=== PATIENT | female | born 1985 | race American Indian/Alaskan Native ===

== ENCOUNTER 2017-07-13 14:11 | Emergency (ER) | payer SELFPAY ==
[2017-07-13 14:19] VITALS: BP 114/66
--- NOTE | 2017-07-13 15:11 | Emergency Department Report ---
ED Upper Extremity Inj HPI - General Chief Complaint: Shoulder Injury Stated Complaint: RIGHT SHOULDER/BACK PAIN Time Seen by Provider: 07/13/17 15:11 Source: patient Mode of arrival: Ambulatory Limitations: No Limitations - History of Present Illness Complaint: Injury to:: right -: Gradual Other Extremity Injury: Shoulder: Right Handedness: right Place: work Improves With: none Worsens With: none Associated Symptoms: denies other symptoms - Related Data Previous Rx's Medication Instructions Recorded Last Taken Type Ibuprofen [Motrin] 800 mg PO Q8HR PRN #20 tablet 07/13/17 Unknown Rx Allergies Allergy/AdvReac Type Severity Reaction Status Date / Time No Known Allergies Allergy Verified 07/13/17 14:17 ED Review of Systems ROS: Stated complaint: RIGHT SHOULDER/BACK PAIN Other details as noted in HPI Comment: Unobtainable due to pts medical conditions Constitutional: no symptoms reported, see HPI Eyes: as per HPI ENT: as per HPI Respiratory: no symptoms reported, see HPI Cardiovascular: as per HPI Endocrine: no symptoms reported, see HPI Gastrointestinal: as per HPI. denies: abdominal pain, nausea, vomiting Genitourinary: as per HPI. denies: urgency, dysuria Musculoskeletal: as per HPI, other (r shoulder pain). denies: back pain Skin: as per HPI Neurological: as per HPI Psychiatric: as per HPI Hematological/Lymphatic: as per HPI ED Past Medical Hx - Past Medical History Hx Hypertension: No Hx Congestive Heart Failure: No Hx Diabetes: No Hx Deep Vein Thrombosis: No Hx Renal Disease: No Hx Sickle Cell Disease: No Hx Seizures: No Hx Asthma: No Hx COPD: No Hx HIV: No - Surgical History Past Surgical History?: No - Social History Smoking Status: Current Every Day Smoker Substance Use Type: None - Medications Home Medications: Home Medications Medication Instructions Recorded Confirmed Last Taken Type Ibuprofen [Motrin] 800 mg PO Q8HR PRN #20 tablet 07/13/17 Unknown Rx ED Physical Exam - General Limitations: No Limitations General appearance: alert - Head Head exam: Present: atraumatic - Eye Eye exam: Present: normal appearance - ENT ENT exam: Present: mucous membranes moist - Neck Neck exam: Present: normal inspection - Respiratory Respiratory exam: Present: normal lung sounds bilaterally - Cardiovascular Cardiovascular Exam: Present: regular rate - GI/Abdominal GI/Abdominal exam: Present: soft - Rectal Rectal exam: Present: deferred - External exam: Present: normal external exam - Extremities Exam Extremities exam: Present: normal inspection, full ROM, normal capillary refill. Absent: tenderness, pedal edema, joint swelling, calf tenderness - Expanded Upper Extremity Exam Right General: Present: other Shoulder Exam: Present: normal inspection, full ROM. Absent: tenderness, swelling, abrasion, laceration, ecchymosis, deformity, crepidus, dislocation, erythema, tenderness over AC joint Upper Arm exam: Present: normal inspection Elbow exam: Present: normal inspection Forearm Wrist exam: Present: normal inspection Hand Wrist exam: Present: normal inspection - Back Exam Back exam: Present: normal inspection - Neurological Exam Neurological exam: Present: alert, oriented X3 - Psychiatric Psychiatric exam: Present: normal affect, normal mood - Skin Skin exam: Present: warm, dry, intact ED Course Vital Signs 07/13/17 14:17 Temperature 98.1 F Pulse Rate 52 L Respiratory 18 Rate Blood Pressure 114/66 O2 Sat by Pulse 100 Oximetry - Reevaluation(s) Reevaluation #1: 07/13/17 15:44 here from work bc she co r shoulder 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 ED Disposition Clinical Impression: Shoulder pain Disposition: DC-01 TO HOME OR SELFCARE Is pt being admited?: No Does the pt Need Aspirin: No Condition: Stable Instructions: Shoulder Sprain (ED) Additional Instructions: ice rest motrin follow up with ortho if persists Referrals: DELORES BETTENCOURT MD [Staff Physician] - 3-5 Days Forms: Work/School Release Form(ED) Time of Disposition: 15:40
[2017-07-13] MEDS ORDERED: MOTRIN PO ONE (15:40)
== END 2017-07-13 15:58 | disposition home or self-care (01) ==
LOC: ED 14:11
DX: M25.511 Pain in right shoulder (principal); F17.200 Nicotine dependence, unspecified, uncomplicated
CPT/HCPCS: 99282

== ENCOUNTER 2017-11-09 08:45 | Emergency (ER) | payer BC ==
[2017-11-09 08:56] VITALS: BP 114/80
[2017-11-09] MEDS ORDERED: MOTRIN PO ONE (09:14)
[2017-11-09] MEDS ORDERED: ZOFRAN ODT PO ONE (09:14)
--- NOTE | 2017-11-09 09:14 | Emergency Department Report ---
- General Chief Complaint: Upper Respiratory Infection Stated Complaint: FLU LIKE SYMPTOMS Time Seen by Provider: 11/09/17 09:13 Source: patient Mode of arrival: Ambulatory Limitations: No Limitations - History of Present Illness Initial Comments: 32-year-old female past medical history smoker presents with complaint of 2-3 days of runny nose body aches fever chills. Denies chest pain palpitations dysuria or increased urinary frequency. Patient is awake alert and oriented 3 no trismus no drooling. States she has had multiple sick contacts with flulike illness this week. MD Complaint: fever, cough Onset/Timin -: days(s) Context: sick contacts Associated Symptoms: fever, chills, myalgias, cough Treatments Prior to Arrival: "cold medicine" - Related Data Previous Rx's Medication Instructions Recorded Last Taken Type Ibuprofen [Motrin] 800 mg PO Q8HR PRN #20 tablet 07/13/17 Unknown Rx Albuterol Sulfate [Ventolin Hfa] 1 gm IH Q4H PRN #1 hfa.aer.ad 11/09/17 Unknown Rx Ibuprofen [Motrin] 800 mg PO Q8HR PRN #30 tablet 11/09/17 Unknown Rx Ondansetron [Zofran Odt] 4 mg PO Q8H PRN #10 tab.rapdis 11/09/17 Unknown Rx Oseltamivir [Tamiflu] 75 mg PO BID #10 cap 11/09/17 Unknown Rx Phenylephrine/Dm/Acetaminop/GG 10 ml PO Q6H PRN #1 liquid 11/09/17 Unknown Rx [Mucinex Jgps-Nad-Gjfruqshmx Lq] Allergies Allergy/AdvReac Type Severity Reaction Status Date / Time No Known Allergies Allergy Verified 07/13/17 14:17 ED Review of Systems ROS: Stated complaint: FLU LIKE SYMPTOMS Other details as noted in HPI Constitutional: fever, malaise. denies: chills Eyes: denies: eye pain, eye discharge, vision change ENT: denies: ear pain, throat pain Respiratory: cough. denies: shortness of breath, wheezing Cardiovascular: denies: chest pain, palpitations Endocrine: no symptoms reported Gastrointestinal: denies: abdominal pain, nausea, diarrhea Genitourinary: denies: urgency, dysuria, discharge Musculoskeletal: denies: back pain, joint swelling, arthralgia Skin: denies: rash, lesions Neurological: denies: headache, weakness, paresthesias Psychiatric: denies: anxiety, depression Hematological/Lymphatic: denies: easy bleeding, easy bruising ED Past Medical Hx - Past Medical History Previous Medical History?: Yes Hx Hypertension: No Hx Congestive Heart Failure: No Hx Diabetes: No Hx Deep Vein Thrombosis: No Hx Renal Disease: No Hx Sickle Cell Disease: No Hx Seizures: No Hx Asthma: No Hx COPD: No Hx HIV: No Additional medical history: Vaginal delivery 06-03-2003, Stillborn 05-13-2015 - Surgical History Past Surgical History?: No - Social History Smoking Status: Current Every Day Smoker Substance Use Type: Non Opiate Pain, Other - Medications Home Medications: Home Medications Medication Instructions Recorded Confirmed Last Taken Type Ibuprofen [Motrin] 800 mg PO Q8HR PRN #20 tablet 07/13/17 Unknown Rx Albuterol Sulfate [Ventolin Hfa] 1 gm IH Q4H PRN #1 hfa.aer.ad 11/09/17 Unknown Rx Ibuprofen [Motrin] 800 mg PO Q8HR PRN #30 tablet 11/09/17 Unknown Rx Ondansetron [Zofran Odt] 4 mg PO Q8H PRN #10 tab.rapdis 11/09/17 Unknown Rx Oseltamivir [Tamiflu] 75 mg PO BID #10 cap 11/09/17 Unknown Rx Phenylephrine/Dm/Acetaminop/GG 10 ml PO Q6H PRN #1 liquid 11/09/17 Unknown Rx [Mucinex Xzyq-Siu-Phrovaohjt Lq] ED Physical Exam - General Limitations: No Limitations General appearance: alert, in no apparent distress - Head Head exam: Present: atraumatic, normocephalic - Eye Eye exam: Present: normal appearance, PERRL, EOMI - ENT ENT exam: Present: mucous membranes moist - Neck Neck exam: Present: normal inspection - Respiratory Respiratory exam: Present: normal lung sounds bilaterally. Absent: respiratory distress - Cardiovascular Cardiovascular Exam: Present: regular rate, normal rhythm. Absent: systolic murmur, diastolic murmur, rubs, gallop - GI/Abdominal GI/Abdominal exam: Present: soft, normal bowel sounds - Extremities Exam Extremities exam: Present: normal inspection - Back Exam Back exam: Present: normal inspection - Neurological Exam Neurological exam: Present: alert, oriented X3 - Psychiatric Psychiatric exam: Present: normal affect, normal mood - Skin Skin exam: Present: warm, dry, intact, normal color. Absent: rash ED Course Vital Signs 11/09/17 11/09/17 11/09/17 08:53 09:30 10:29 Temperature 98.6 F Pulse Rate 62 Pulse Rate [ 63 Posterior Bilateral Throughout] Respiratory 20 18 Rate Respiratory 18 Rate [Posterior Bilateral Throughout] Blood Pressure 114/80 O2 Sat by Pulse 99 Oximetry ED Medical Decision Making - Medical Decision Making A/P: Flulike illness, viral syndrome 1- -chest x-ray is unremarkable, vital signs stable before discharge. 2- Patient tolerating by mouth fluid and food without difficulty 3-Motrin when necessary, Mucinex when necessary, albuterol inhaler when necessary. I offered patient Tamiflu. Patient expressed some interest in taking it after discussion of side effects benefits and risks of taking Tamiflu. I educated patient and provided him with literature on fluid management https://www.[employer]/contents/eqteskkot-nvxabkck-bzy-treatment- deikqb-fdv-drrklp/print?source=see_link 4- I advised patient to follow up with primary care or to return to the ED for any inability to tolerate by mouth fluid or food persistent nausea and vomiting severe fevers and chills or fevers persistently above 100.4F despite antipyretic use, severe lethargy. Patient stated he understood my instructions. I advised patient to remain well-hydrated. Critical care attestation.: If time is entered above; I have spent that time in minutes in the direct care of this critically ill patient, excluding procedure time. ED Disposition Clinical Impression: Flu-like symptoms Disposition: DC-01 TO HOME OR SELFCARE Is pt being admited?: No Does the pt Need Aspirin: No Condition: Stable Instructions: Influenza (ED), Viral Syndrome (ED) Prescriptions: Albuterol Sulfate [Ventolin Hfa] 1 gm IH Q4H PRN #1 hfa.aer.ad PRN Reason: Wheezing Ibuprofen [Motrin] 800 mg PO Q8HR PRN #30 tablet PRN Reason: Fever Ondansetron [Zofran Odt] 4 mg PO Q8H PRN #10 tab.rapdis PRN Reason: Nausea Oseltamivir [Tamiflu] 75 mg PO BID #10 cap Phenylephrine/Dm/Acetaminop/GG [Mucinex Uegz-Ttk-Rgetehyzhc Lq] 10 ml PO Q6H PRN #1 liquid PRN Reason: Cough Referrals: PRIMARY CARE, [Primary Care Provider] - 3-5 Days [facility] [Outside] - 3-5 Days Forms: Work/School Release Form(ED) Time of Disposition: 10:54
[2017-11-09] MEDS ORDERED: DUONEB *Not for PRN Use IH ONE (10:17)
--- NOTE | 2017-11-09 10:48 | XRay Report ---
Chest 2 views: History: Productive cough. Findings: Normal cardiomediastinal silhouette. Trachea is midline. No consolidation, pneumothorax or pleural effusion. Impression: No acute cardiopulmonary findings.
== END 2017-11-09 11:13 | disposition home or self-care (01) ==
LOC: ED 08:45
DX: M79.1 Myalgia (principal); R50.9 Fever, unspecified; F17.200 Nicotine dependence, unspecified, uncomplicated
CPT/HCPCS: 71046; 94640; Q0162